=== PATIENT | female | born 1975 | race Caucasian/White ===

== ENCOUNTER 2017-08-31 17:22 | Emergency (ER) | payer OTHER ==
[~2017-08-31] VITALS: Ht 165.1 cm; Wt 81.7 kg
[2017-08-31] MEDS ORDERED: IRON325 PO (17:33)
[2017-08-31 17:59] LABS: ABSOLUTE BASOPHILS 0.1 thou/uL (0.0-0.2); ABSOLUTE LYMPHOCYTES 2.4 thou/uL (0.8-5.3); ABSOLUTE MONOCYTES 0.7 thou/uL (0.0-1.2); BASOPHILS 0.7 %; EOSINOPHILS 0.5 %; HEMATOCRIT 29.8 % (37.0-47.0); HEMOGLOBIN 9.5 gm/dL (12.0-15.0); LYMPHOCYTES 33.6 %; MCH 21.3 pg (26.0-34.0); MCHC 31.9 g/dL (28.0-37.0); MCV 66.6 fL (80.0-100.0); MONOCYTES 9.1 %; MPV 7.5 fl. (7.2-11.1); NUCLEATED RBCS 0 /100WBC; PLATELET COUNT* 406 thou/uL (150-400); POLYS 56.1 %; RBC 4.48 mil/uL (4.20-5.00); RDW-CV 18.7 % (10.5-14.5); WBC 7.2 thou/uL (4.0-11.0)
[2017-08-31 18:09] LABS: ANION GAP 9 mmol/L (7-16); BUN 9 mg/dL (7-18); CALCIUM 8.3 mg/dL (8.5-10.1); CHLORIDE 102 mmol/L (98-107); CO2 28 mmol/L (21-32); CREATININE 0.6 mg/dL (0.6-1.3); GLUCOSE 96 mg/dL (70-99); POTASSIUM 3.3 mmol/L (3.5-5.1); SODIUM 139 mmol/L (136-145)
[2017-08-31 18:16] LABS: ALBUMIN 3.5 g/dL (3.4-5.0); ALKALINE PHOSPHATASE 59 U/L (46-116); LIPASE 178 U/L (73-393); SGOT 12 U/L (15-37); SGPT 20 U/L (30-65); TOTAL BILIRUBIN 0.1 mg/dL (<0.1-1.0); TOTAL PROTEIN 6.8 g/dL (6.4-8.2); TROPONIN-I LEVEL <0.06 ng/mL (<0.06)
[2017-08-31 18:30] LABS: ANISOCYTOSIS 1+; MICROCYTES 2+
[2017-08-31 18:31] LABS: HYPOCHROMASIA 2+; PLATELET ESTIMATE ADEQUATE
[2017-08-31 18:34] LABS: URINE BILIRUBIN NEGATIVE (Negative); URINE BLOOD NEGATIVE (Negative); URINE CLARITY CLEAR; URINE COLOR YELLOW; URINE GLUCOSE-RANDOM NEGATIVE (Negative); URINE KETONES NEGATIVE (Negative); URINE LEUKOCYTES-REFLEX NEGATIVE (Negative); URINE NITRITE-REFLEX NEGATIVE (Negative); URINE PROTEIN NEGATIVE (Negative); URINE SPECIFIC GRAVITY 1.015 (1.005-1.030); URINE UROBILINOGEN 0.2 E.U./dl (0.2-1.0)
[2017-08-31 23:21] VITALS: BP 140/84
--- NOTE | 2017-09-01 09:15 | EKG ---
[place] [address] ELECTROCARDIOGRAM REPORT Name: DARIN DIAZ Room: [place]#: [id number] Admission: 08/31/17 Attend Phys: Discharge: 08/31/17 Date of : 71 Report #: [id number] THIS REPORT FOR: //name// [facility] ED Test Date: 2017-08-31 Test Time: 17:42:03 Pat Name: DARIN GAYTANMARIANELA Department: Room: Gender: F Paper Latcher: BIJU : 1975 Requested By: Jennifer Fernandez Order Number: [id number] MD: Christopher Berry Measurements Intervals [place] Rate: 80 P: 15 WI: 142 QRS: 54 QRSD: 101 T: 28 QT: 389 QTc: 449 Interpretive Statements Sinus rhythm RSR' in V1 or V2, right VCD or RVH Nonspecific T abnormalities, anterior leads No previous ECG available for comparison Electronically Signed On 09-01-2017 9:14:46 CDT by Christopher Berry [email or web address] <ELECTRONICALLY SIGNED> By: Christopher Berry MD, [facility] 09/01/1714 [id number] Christopher Berry MD, [facility] /EPI
== END 2017-08-31 23:22 | disposition home or self-care (01) ==
LOC: M.ERS 17:22
PROVIDERS: Nurse Practitioner Family
DX: R10.11 Right upper quadrant pain (principal); R10.31 Right lower quadrant pain; Z98.890 Other specified postprocedural states